=== PATIENT | female | born 1955 | race Caucasian/White ===

== ENCOUNTER 2018-07-12 11:55 | Inpatient (IN) | payer OTHER ==
[~2018-07-12] VITALS: Ht 160 cm; Wt 108.9 kg
[2018-07-12 12:23] VITALS: Ht 160 cm; Wt 108.9 kg
--- NOTE | 2018-07-12 12:25 | NUR ---
AWAKE ALERT ORIENTED, C/O SHARP CHEST PAIN SINCE ONE HOUR ,NOW FEELS BETTER,
[2018-07-12 13:03] LABS: BASOPHIL % 0.7 % (0-2); PLATELET COUNT 384 x10^3mcL (130-400)
[2018-07-12 13:05] LABS: RED CELL DISTRIBUTION WIDTH 16.3 % (11.5-14.5)
[2018-07-12 13:16] LABS: CALCIUM 8.6 mg/dL (8.5-10.1); CARBON DIOXIDE 32.4 mmol/L (21-32); POTASSIUM SERUM 3.7 mmol/L (3.5-5.1)
[2018-07-12 13:21] LABS: BILIRUBIN TOTAL 0.18 mg/dL (0.20-1.00); TOTAL PROTEIN, SERUM 6.8 g/dL (6.4-8.2)
[2018-07-12] MEDS ORDERED: ZESTRIL20 MG PO (14:28)
[2018-07-12] MEDS ORDERED: ZOCOR40 MG PO (14:28)
[2018-07-12] MEDS ORDERED: GOOD SENSE ASPI81 M3 PO (14:29)
[2018-07-12] MEDS ORDERED: PROTONIX40 MG PO (14:29)
[2018-07-12] MEDS ORDERED: HYDROCHLOROTHIA25 MG PO (14:29)
--- NOTE | 2018-07-12 14:49 | NUR ---
REPORT GIVEN TO GUIDO ALFARO EXT [id number] TELE WHO WILL BE RESUMING CARE OF PT
[2018-07-12 15:00] VITALS: BP 106/65
--- NOTE | 2018-07-12 15:02 | NUR ---
RECEIVED PT FROM ED VIA SENG. ORIENTED PT TO ROOM AND SURROUNDINGS. IV NOTED TO PATENT AND INTACT. TELE 34 PLACED ON PT READING NSR. INSTRUCTED PT ON THE USE OF CALL LIGHT FOR ASSISTANCE. ENDORSED PT TO PRIMARY NURSE ANGELINA
--- NOTE | 2018-07-12 16:06 | NUR ---
PT C/O DAVIS 11/30, WILL MEDICATE PER EMAR.
--- NOTE | 2018-07-12 17:23 | NUR ---
PT RESTING/ DENIES DAVIS AT THIS TIME. DENIES ANY CP OR PRESSURE AT THIS TIME. IV TO THE L HAND INTACT AND PATENT/ HEPLOCKED/ NO REDNESS OR SWELLING NOTED. CALL LIGHT IN REACH. BED IN LOW POSITION. WILL CONTINUE PLAN OF CARE.
--- NOTE | 2018-07-12 18:43 | NUR ---
NO ACUTE CHANGES AT THIS TIME. NO ACUTE RESP DISTRESS OR SOB NOTED. DENIES ANY CP OR PRESSURE. IV TO THE LH INTACT AND PATENT/HEPLOCKED. WILL ENDORSE TO INCOMING RN.
--- NOTE | 2018-07-12 19:42 | NUR ---
DR. SKINNER PAGED AND LEFT A MESSAGE AT THIS TIME.
--- NOTE | 2018-07-12 19:55 | NUR ---
PT IS AWAKE AND ORIETNED X4. PT DENIES DAVIS OR DIZZINESS AT THIS TIME. PT IS CALM AND COOPERATIVE WITH NURSING CARE. PT ON TELE#34 SHOWING NSR ON THE MONITOR. PT DENIES CP OR PRESSURE. PT HAS PALPABLE PULSES BILAT ALL EXTREMITIES. NO SIGNS OF EDEMA. PT HAS CLEAR LUNG SOUNDS. RESPIRATIONS EVEN AND UNLABORED ON ROOM AIR. PT DENIES SOB. PT HAS ACTIVE BOWEL SOUNDS. PT DENIES ABD PAIN AND N/V AT THIS TIME. PT ABD SOFT, AND NONTENDER. PT VOIDS FREELY ON OWN. PT IS AMBULATORY WITH STEADY GATE. PT SKIN CDI. IV TO LEFT HAND HEPLOCKED AT THIS TIME. PT DENIES PAIN OR DISCOMFORT. NO SIGNS OF DISTRESS. WILL CONTINUE TO [facility].
--- NOTE | 2018-07-12 20:06 | NUR ---
PT STRESS TEST SCHED FOR [address] SKINNER, PER NUC MED UNABLE TO DO STRESS TEST UNTIL 0930. DR. SKINNER PAGED BUT NO ANSWER. DR. PALMA NOTIFIED, AND STATED SHE WOULD NOTIFY DR. SKINNRE.
[2018-07-12 21:10] VITALS: BP 130/85
--- NOTE | 2018-07-13 01:41 | NUR ---
PT REMAINS IN BED AT THIS TIME RESTING WITH EYES CLOSED. NO SIGNS OF DISTRESS. WILL CONTINUE TO MONITOR.
--- NOTE | 2018-07-13 03:04 | NUR ---
PT REMAINS IN BED AT THIS TIME RESTING WITH EYES CLOSED. NO SIGNS OF DISTRESS. WILL CONTINUE TO MONITOR.
--- NOTE | 2018-07-13 04:00 | NUR ---
PT NOTED TO HAVE NO CODE STATUS IN PLACE. DR. PALMA NOTIFED.
[2018-07-13 05:20] VITALS: BP 121/79
--- NOTE | 2018-07-13 05:47 | NUR ---
PT IS CALM AND COOPERATIVE WITH NURSING CARE. PT DENIES CP OR PRESSURE THROUGHOUT THE SHIFT. PT SLEPT THROUGHOUT THE SHIFT. ALL PT NEEDS MET. NO SIGNS OF DISTRESS. WILL ENDORSE TO DAY NURSE.
--- NOTE | 2018-07-13 08:00 | NUR ---
RECEIVED PATIENT ALERT AND ORIENTED TIMES FOUR. PATIENT DENIES CHEST PAIN OR SOB. PATIENT IS NPO FOR THE STRESS TEST PLANNED. SHE IS TO HAVE A LEXISCAN AT 930 TODAY. PATIENT WITH HISTORY OF PE, DVT, HTN, ANEMIA AND IS A SMOKER. PATIENT HAS NEGATIVE CHEST XRAY AND WITH TROPONIN AT BELOW 0.02. PATIENT HAS A H AND H OF 10.7/33, AND THE BUN AT 20.0 AND NA AT 146. PATIENT HAS GLUCOSE OF 122. SHE HAS BEEN AMBULATORY AND HAS A IV TO HEPLOCK TO THE LEFT HAND. PATIENT AHS NO KNONW ALLERGIES AND HAS VITALS AT THIS TIME AT 97.9, 73, 18, 121/79, 96%. PATIENT COOPERATIVE AND NO DISTRESS NOTED A AT THIS TIME.
--- NOTE | 2018-07-13 09:30 | NUR ---
PATIENT GIVEN LEXISCAN ORDERED. WILL BE PICKING UP PER THE TECH IN A HALF A HOUR FOR THE TEST.
--- NOTE | 2018-07-13 10:10 | NUR ---
PATIENT DOWN FOR STRESS TEST AT THIS TIME.
--- NOTE | 2018-07-13 10:30 | NUR ---
PATIENT HAS BEEN TAKEN TO THE NUCLEAR MED FOR STRESS TEST. GAVE TYELNOL PRIOR TO TAFNER FOR HEADACHE. PATIENT HAS BEEN NPO ORDERED.
--- NOTE | 2018-07-13 11:03 | NUR ---
BACK FROM THE STRESS TEST AND WILL CONTINUE TO MONITO FROR THE NEXT HALF OF THE TESTING INDICATED.
--- NOTE | 2018-07-13 12:09 | NUR ---
GAVE ALL THE MEDICATION ORDERED FOR HER NOW THAT THE STRESS TEST WAS COMPLETED. PATIENT IS AWAITING RESULTS. OFFERED FOOD AND DRINK. DENIES CHEST PAIN OR SOB AT THIS TIME.
[2018-07-13 12:42] VITALS: BP 99/60
[2018-07-13 15:24] VITALS: BP 99/60
--- NOTE | 2018-07-13 16:26 | NUR ---
DISCHARGE TO HOME WITH ALL BELONGINGS GAVE DISCHARGE PAPERWORK AND REMOVED IV AND TELE PRIOR TO DISCHARGE. SHERIFFS WAS ADVISED THAT THE NET COORDINATOR HAD NOT BEEN ABLE TO BE REACH AND PATIENT IS ANXIOUS TO GO HOME. SHERIFFS HAD WRITTEN THE PAPERWORK AND PATIETN WAS DISCHARGED HOME THE STRESS TEST WAS NEGATIVE.
== END 2018-07-13 15:50 | disposition home or self-care (01) | DRG 190 ==
LOC: ED 11:55 → DU 14:01
PROVIDERS: Emergency Medicine; ADMIT Internal Medicine
DX: I21.4 Non-ST elevation (NSTEMI) myocardial infarction (principal); I11.9 Hypertensive heart disease without heart failure; Z68.41 Body mass index [BMI] 40.0-44.9, adult; D64.9 Anemia, unspecified; I20.0 Unstable angina; E66.9 Obesity, unspecified; G47.33 Obstructive sleep apnea (adult) (pediatric); Z79.82 Long term (current) use of aspirin; Z86.718 Personal history of other venous thrombosis and embolism; Z86.711 Personal history of pulmonary embolism; Z98.82 Breast implant status; Z82.3 Family history of stroke; Z83.3 Family history of diabetes mellitus
CPT/HCPCS: 83880; 85378; A9500; C9113; J2785; Q0092